=== PATIENT | female | born 1950 ===

== ENCOUNTER 2018-04-10 08:26 | Outpatient (CLI) | payer OTHER | END 2018-04-10 08:28 | disposition home or self-care (01) | LOC: SONOGRAMA 08:26 | DX: E04.1 Nontoxic single thyroid nodule (principal) ==

== ENCOUNTER → 2025-04-03 15:26 | Outpatient (CLI) | payer OTHER | END | disposition home or self-care (01) | LOC: SONOGRAMA 15:26 | PROVIDERS: ATTEND Pathology Anatomic Pathology & Clinical Pathology | DX: E03.8 Other specified hypothyroidism (principal) ==